=== PATIENT | female | born 1985 | race Two or more races ===

== ENCOUNTER 2016-06-25 07:36 | Inpatient (IN) | payer BC, OTHER ==
[~2016-06-25] VITALS: Ht 154.9 cm; Wt 70.2 kg
[~2016-06-25 07:36] MED LIST: AMLO2.5T PO; AMLO5TAB4 PO; ATOR20TA PO; BP MED; CALC667T PO; CARV-39 PO; CARV12.52 PO; CHOL500014 PO; ENAL10TA PO; INSU100I11 SQ-INSULIN; INSU100I17 SC; INSU100I18 SC; INSU100V14 SQ; INSU100V8 SQ; LEVO500T33 PO; LISI40TA PO; SODI650T PO
[2016-06-25] MEDS ORDERED: SEVE800T8 PO (07:49)
[2016-06-25] MEDS ORDERED: CARV-39 PO (07:51)
[2016-06-25] MEDS ORDERED: AMLO5TAB2 PO (07:51)
[2016-06-25 08:33] LABS: ASPARTATE AMINO TRANSFERASE 9 U/L (15-37); BLOOD UREA NITROGEN 54 mg/dL (7-18)
[2016-06-25] MEDS ORDERED: DEXTROSE 50%, 50ML SYRINGE ONE (08:39)
[2016-06-25] MEDS ORDERED: DEXTROSE 50%, 50ML SYRINGE IVPush ONE (09:00)
[2016-06-25] MEDS ORDERED: DEXTROSE 10%, 250ML IV ONE (09:00)
[2016-06-25 12:58] LABS: PATH.CAST-FLAG NOT PRESENT; SPERM-FLAG NOT PRESENT; SRC-FLAG NOT PRESENT; XTAL-FLAG NOT PRESENT; YLC-FLAG NOT PRESENT
[2016-06-25] MEDS ORDERED: ONDANSETRON ODT 4 MG PO PRN (13:00)
[2016-06-25] MEDS ORDERED: ACETAMINOPHEN 325 MG TABLET PO PRN (13:00)
[2016-06-25] MEDS ORDERED: ENALAPRIL 10 MG TABLET PO SCH (13:00)
[2016-06-25] MEDS ORDERED: BISACODYL 10 MG SUPP PR PRN (13:00)
[2016-06-25] MEDS ORDERED: ENALAPRILAT 1.25 MG/ML, 2ML IVPush PRN (13:00)
[2016-06-25] MEDS ORDERED: ZOLPIDEM 5MG TABLET PO PRN (13:00)
[2016-06-25] MEDS ORDERED: DOCUSATE 100 MG CAPSULE PO PRN (13:00)
[2016-06-25] MEDS ORDERED: ENOXAPARIN 40 MG/0.4 ML SQ SCH (15:00)
[2016-06-25] MEDS: INSULIN REGULAR 100 UNITS/ML, 3ML VIAL SQ-INSULIN SCH ×3 (15:26→21:00)
[2016-06-25] MEDS: SODIUM BICARBONATE 650 MG TABLET PO SCH ×2 (15:28→17:05)
[2016-06-25] MEDS: CHOLECALCIFEROL 1,000 UNIT TABLET PO SCH (15:29)
[2016-06-25] MEDS: SEVELAMER 800MG TABLET PO SCH (17:01)
[2016-06-25] MEDS: CALCIUM ACETATE 667 MG CAPSULE PO SCH (17:05)
[2016-06-25 20:05] VITALS: BP 119/56
[2016-06-25] MEDS ORDERED: CARVEDILOL 25 MG TABLET PO SCH (21:00)
[2016-06-25] MEDS ORDERED: INSULIN DETEMIR 100 UNITS/ML, PEN SQ-INSULIN SCH (21:00)
[2016-06-26] MEDS: INSULIN REGULAR 100 UNITS/ML, 3ML VIAL SQ-INSULIN SCH ×4 (01:23→20:48)
[2016-06-26] MEDS ORDERED: MORPHINE SULFATE 4 MG/ML, 1ML ONE (01:37)
[2016-06-26] MEDS ORDERED: ONDANSETRON 2MG/ML, 2ML ONE (01:39)
[2016-06-26] MEDS ORDERED: MORPHINE SULFATE 4 MG/ML, 1ML IVPush ONE (02:00)
[2016-06-26 02:11] LABS: BLOOD UREA NITROGEN 66 mg/dL (7-18)
[2016-06-26 02:41] LABS: IS PT STATUS REG ER OR PRE ER? NO
[2016-06-26 02:47] VITALS: BP 116/73
[2016-06-26] MEDS: ONDANSETRON 2MG/ML, 2ML IVPush PRN ×2 (03:03→13:53)
[2016-06-26] MEDS: HEPARIN 5,000 UNITS/ML, 1ML SQ SCH ×3 (03:03→17:44)
[2016-06-26] MEDS ORDERED: DEXTROSE 50%, 50ML SYRINGE IVPush ONE ×2 (04:00→08:30)
[2016-06-26] MEDS ORDERED: INSULIN REGULAR 100 UNITS/ML, 3ML VIAL IVPush ONE (04:00)
[2016-06-26] MEDS ORDERED: CALCIUM GLUCONATE 4.6 MEQ in SODIUM CHLORIDE 0.9% 50 ML IV ONE (04:00)
[2016-06-26] MEDS ORDERED: CALCIUM GLUCONATE 4.6 MEQ/10 ML IVPush ONE (04:00)
[2016-06-26] MEDS ORDERED: OMNIPAQUE 350 MG/ML, 100ML BOTTLE ONE (04:51)
[2016-06-26 06:36] LABS: PATH.CAST-FLAG NOT PRESENT; SPERM-FLAG NOT PRESENT; SRC-FLAG NOT PRESENT; XTAL-FLAG NOT PRESENT; YLC-FLAG NOT PRESENT
[2016-06-26 06:43] LABS: BLOOD UREA NITROGEN 69 mg/dL (7-18)
[2016-06-26 06:51] LABS: IS PT STATUS REG ER OR PRE ER? NO
[2016-06-26 06:58] VITALS: BP 114/67
[2016-06-26] MEDS ORDERED: DEXTROSE 50%, 50ML SYRINGE ONE (08:10)
[2016-06-26] MEDS: SEVELAMER 800MG TABLET PO SCH ×2 (08:25→11:42)
[2016-06-26] MEDS: CALCIUM ACETATE 667 MG CAPSULE PO SCH ×2 (08:25→11:42)
[2016-06-26] MEDS: SODIUM BICARBONATE 650 MG TABLET PO SCH ×2 (08:26→11:42)
[2016-06-26] MEDS: CARVEDILOL 25 MG TABLET PO SCH ×2 (08:26→20:49)
[2016-06-26] MEDS: ENALAPRIL 10 MG TABLET PO SCH (08:27)
[2016-06-26] MEDS: AMLODIPINE 5 MG TABLET PO SCH (08:28)
[2016-06-26] MEDS: CHOLECALCIFEROL 1,000 UNIT TABLET PO SCH (08:28)
[2016-06-26] MEDS ORDERED: D5%-0.45% NACL 1,000 ML IV SCH (08:30)
[2016-06-26] MEDS ORDERED: GLUCAGON 1 MG IM ONE (08:30)
[2016-06-26] MEDS ORDERED: AMLODIPINE 5 MG TABLET PO SCH (09:00)
[2016-06-26 10:41] VITALS: BP 109/74
[2016-06-26] MEDS: MORPHINE SULFATE 4 MG/ML, 1ML IVPush PRN (10:49)
[2016-06-26] MEDS ORDERED: INSULIN REGULAR 100 UNITS/ML, 3ML VIAL SQ-INSULIN ONE ×2 (12:00→13:00)
[2016-06-26] MEDS: INSULIN DETEMIR 100 UNITS/ML, PEN SQ-INSULIN SCH ×2 (12:27→15:54)
[2016-06-26 12:33] VITALS: BP 110/63
[2016-06-26 14:04] LABS: IS PT STATUS REG ER OR PRE ER? NO
[2016-06-26] MEDS: NEUTRA PHOS K 250 MG TABLET PO SCH (16:36)
[2016-06-26] MEDS ORDERED: DEXTROSE 50%, 50ML SYRINGE IVPush PRN (19:30)
[2016-06-26] MEDS ORDERED: GLUCAGON 1 MG IM PRN (19:30)
[2016-06-26] MEDS ORDERED: DEXTROSE 4 GM TAB.CHEW PO PRN (19:30)
[2016-06-26 20:30] VITALS: BP 114/64
[2016-06-26] MEDS: SODIUM CHLORIDE FLUSH 10ML SYR IVF SCH (20:49)
[2016-06-27 01:40] VITALS: BP 121/73
[2016-06-27] MEDS: NEUTRA PHOS K 250 MG TABLET PO SCH (02:57)
[2016-06-27] MEDS: HEPARIN 5,000 UNITS/ML, 1ML SQ SCH ×2 (02:57→12:56)
[2016-06-27 03:50] VITALS: BP 123/65
[2016-06-27] MEDS ORDERED: NITROGLYCERIN 0.4 MG/SPRAY SL PRN (04:00)
[2016-06-27] MEDS ORDERED: NITROGLYCERIN 0.4 MG BOTTLE (25 TABS) SL PRN (04:00)
[2016-06-27] MEDS: ONDANSETRON 2MG/ML, 2ML IVPush PRN (04:16)
[2016-06-27] MEDS: MORPHINE SULFATE 4 MG/ML, 1ML IVPush PRN (04:16)
[2016-06-27] MEDS ORDERED: INSULIN REGULAR 100 UNITS/ML, 3ML VIAL SQ-INSULIN ONE ×2 (04:30→05:00)
[2016-06-27 05:07] LABS: BLOOD UREA NITROGEN 76 mg/dL (7-18)
[2016-06-27 06:45] VITALS: BP 105/56
[2016-06-27] MEDS ORDERED: CALCIUM GLUCONATE 4.6 MEQ in SODIUM CHLORIDE 0.9% 50 ML IV ONE (07:00)
[2016-06-27] MEDS: INSULIN REGULAR 100 UNITS/ML, 3ML VIAL SQ-INSULIN SCH ×3 (08:00→18:04)
[2016-06-27] MEDS: SODIUM CHLORIDE FLUSH 10ML SYR IVF SCH (09:00)
[2016-06-27] MEDS: CARVEDILOL 25 MG TABLET PO SCH (09:00)
[2016-06-27] MEDS: ENALAPRIL 10 MG TABLET PO SCH (09:00)
[2016-06-27] MEDS: AMLODIPINE 5 MG TABLET PO SCH (09:00)
[2016-06-27 11:01] LABS: HEP B SURF. AB 29.4 mIU/mL (0.0-10.0)
[2016-06-27 12:56] LABS: BLOOD UREA NITROGEN 16 mg/dL (7-18)
[2016-06-27] MEDS: CHOLECALCIFEROL 1,000 UNIT TABLET PO SCH (12:57)
[2016-06-27 13:15] VITALS: BP 108/58
== END 2016-06-27 18:10 | disposition home or self-care (01) | DRG 637 ==
LOC: ED 09:17 → INTOOBSV 11:51 → EDIP 11:51 → 4NOR 13:49 → 5SO 06-26 02:28 → OBSVTOIN 06-26 10:07
PROVIDERS: ADMIT Internal Medicine
PROC: 0T9B70Z Drainage of Bladder with Drainage Device, Via Natural or Artificial Opening (ICD-10-PCS; principal; 2016-06-26)
PROC: 5A1D60Z (ICD-10-PCS; 2016-06-27)
DX: E10.649 Type 1 diabetes mellitus with hypoglycemia without coma (principal); G93.41 Metabolic encephalopathy; E87.1 Hypo-osmolality and hyponatremia; I13.11 Hypertensive heart and chronic kidney disease without heart failure, with stage 5 chronic kidney disease, or end stage renal disease; N18.6 End stage renal disease; E10.22 Type 1 diabetes mellitus with diabetic chronic kidney disease; D63.1 Anemia in chronic kidney disease; E10.65 Type 1 diabetes mellitus with hyperglycemia; E87.5 Hyperkalemia; Z99.2 Dependence on renal dialysis; Z88.2 Allergy status to sulfonamides; Z88.1 Allergy status to other antibiotic agents
CPT/HCPCS: 36415; 71010; 71275; 80048; 80053; 80061; 81001; 82962; 83036; 83735; 84100; 84132; 84439; 84443; 84484; 84703; 85025; 86704; 86706; 87086; 87340; 93005; 93306; 96374; G0378; J0610; J1644; J1650; J1815; J2405; Q9967